=== PATIENT | female | born 1985 | race Caucasian/White ===

== ENCOUNTER 2018-06-02 08:35 | Emergency (ER) | payer MEDICAID ==
[~2018-06-02] VITALS: Ht 154.9 cm; Wt 88.6 kg
[~2018-06-02 08:35] MED LIST: BENADRYL25 M2 PO; DANDELION ROOT PO; PRENATAL1 TA1 PO; TOPROL XL 25MG25 MG PO
--- NOTE | 2018-06-02 09:02 | NUR ---
0902- This RN at bedside, EFM and TOCO on and tracing. Pt states she is due Jul 19, 2018. Pt denies complications with . Denies VB, LOF. +FM. Pt receives care at [place] with Dr. Dl Solis. 0925- FHR baseline noted to be 135bpm, accels noted. no decels. EFM and TOCO off. Pt reassured. ER physician updated that strip reactive, no contractions noted on monitor.
[2018-06-02 09:11] LABS: BASO % 0.2 % (0.0-2.0); EOS # 0.1 (0.0-0.7); GRAN # 6.1 (1.4-6.5); GRAN % 67.6 % (42.2-75.2); HEMOGLOBIN 11.9 g/dl (12.5-16.0); LYMPH # 2.2 (1.2-3.4); LYMPH % 24.8 % (20.0-51.0); MEAN CELL VOLUME 92 fl (80.0-100.0); MEAN CORPUSCULAR HEMOGLOBIN 30 pg (27.0-31.0); MEAN CORPUSCULAR HGB CONC 33 g/dl (33.0-37.0); MEAN PLATELET VOLUME 9.7 fl (7.4-10.4); MONO # 0.5 (0.1-0.6); MONO % 5.8 % (1.7-9.3); PLATELET COUNT 286 K/mm3 (130-400); RED BLOOD COUNT 3.94 M/mm3 (4.10-5.30); REDCELL DISTRIBUTION WIDTH-CV 13.3 % (11.5-14.5)
[2018-06-02 09:13] LABS: HEMATOCRIT 36.2 % (37.0-47.0)
[2018-06-02 09:17] LABS: ALBUMIN 3.6 gm/dL (3.5-5.0); BILIRUBIN,TOTAL 0.4 mg/dL (0.0-1.0); CALCIUM 9.4 mg/dL (8.4-10.2); CREATININE, serum 0.55 mg/dL (0.52-1.25); MAGNESIUM 1.6 mg/dL (1.6-2.3); TOTAL PROTEIN 6.8 gm/dL (6.4-8.2)
[2018-06-02 10:14] LABS: COLLECTION METHOD CLEAN CATCH
[2018-06-02 10:22] LABS: MUCOUS Present /lpf; PH 7 (5-8); URINE APPEARANCE Clear; URINE BACTERIA Many /hpf; URINE BILIRUBIN Negative (NEGATIVE); URINE BLOOD Negative (NEGATIVE); URINE COLOR Yellow; URINE GLUCOSE Negative (NEGATIVE); URINE KETONE 1+ (NEGATIVE); URINE LEUKOCYTE ESTERASE Negative (NEGATIVE); URINE NITRATE Negative (NEGATIVE); URINE PROTEIN(semi-quant) Negative (NEGATIVE); URINE RBC 0-2 /hpf; URINE UROBILINOGEN Negative (NEGATIVE)
[2018-06-02 12:03] VITALS: BP 117/78; PULSE 101; TEMP 97.8
== END 2018-06-02 12:04 | disposition home or self-care (01) ==
LOC: COL.ER 08:35
PROVIDERS: Family Medicine
DX: O26.893 Other specified pregnancy related conditions, third trimester (principal); I47.1 Supraventricular tachycardia; Z3A.35 35 weeks gestation of pregnancy
CPT/HCPCS: J7030; J7120